=== PATIENT | male | born 1965 | race African-American/Black ===

== ENCOUNTER 2021-06-21 09:53 | Emergency (ER) | payer MEDICAID, OTHER ==
[~2021-06-21] VITALS: Ht 175.3 cm; Wt 87.0 kg
[~2021-06-21 09:53] MED LIST: DIVA500T51 PO; ESCI20TA37 PO
[2021-06-21] MEDS ORDERED: KETOROLAC 30MG/ML VIAL IM ONE (10:30)
[2021-06-21 11:43] LABS: BASOPHILS % 0.5 % (0.0-2.0); EOSINOPHILS % 4.6 % (0.0-5.0); HEMOGLOBIN. 13.9 g/dL (14.0-18.0); LYMPHOCYTES % 18.8 % (20.0-50.0); MEAN CORPUSCULAR HEMOGLOBIN 31.1 pg (28.0-32.0); MEAN CORPUSCULAR VOLUME 89.4 fL (80.0-94.0); MEAN PLATELET VOLUME 8.2 fl (7.4-10.4); MONOCYTES % 12.7 % (2.0-8.0); NEUTROPHILS % 63.4 % (40.0-76.0); PLATELET 202 x1000/uL (130-400); RED BLOOD CELL COUNT 4.47 mill/uL (4.7-6.1); RED CELL DISTRIBUTION WIDTH 16.9 % (11.6-14.6)
[2021-06-21 11:50] LABS: CHLORIDE 105 mEq/L (98-107)
[2021-06-21] MEDS ORDERED: KETOROLAC 30MG/ML VIAL IM NR (12:30)
[2021-06-21 12:57] LABS: CLARITY URINE CLEAR (CLEAR); COLOR URINE YELLOW (YELLOW); KETONES URINE 1+ (NEGATIVE); LEUKOCYTE ESTERASE URINE NEGATIVE (NEGATIVE); NITRITE URINE NEGATIVE (NEGATIVE); OCCULT BLOOD URINE NEGATIVE (NEGATIVE); PH URINE 5.5 (4.5-8.0); PROTEIN URINE NEGATIVE (NEGATIVE); SPECIFIC GRAVITY URINE 1.018 (1.005-1.030)
[2021-06-21 13:00] VITALS: BP 123/83
[2021-06-21] MEDS ORDERED: IBUP-2029 MT (13:34)
== END 2021-06-21 13:48 | disposition home or self-care (01) ==
LOC: ER 10:09
DX: R07.81 Pleurodynia (principal); M94.0 Chondrocostal junction syndrome [Tietze]; G40.909 Epilepsy, unspecified, not intractable, without status epilepticus
CPT/HCPCS: 36415; 71101; 80053; 81003; 83690; 85025; 93005; 96372; 99285; J1885

== ENCOUNTER 2023-07-31 14:02 | Emergency (ER) | payer OTHER ==
[~2023-07-31] VITALS: Ht 175.3 cm; Wt 77.0 kg
[~2023-07-31 14:02] MED LIST changes: +IBUP-2029 MT
[2023-07-31 14:10] VITALS: BP 126/86; PULSE 81; RESP 19; TEMP 97.9; O2SAT 100
[2023-07-31] MEDS ORDERED: HYDR-4622 TP (15:03)
== END 2023-07-31 16:11 | disposition home or self-care (01) ==
LOC: ER 14:02
DX: T78.40XA Allergy, unspecified, initial encounter (principal); X58.XXXA Exposure to other specified factors, initial encounter
CPT/HCPCS: 99282